=== PATIENT | female | born 1950 | race Caucasian/White ===

== ENCOUNTER 2020-03-24 08:43 | Outpatient (CLI) | payer BC | END 2020-03-24 23:59 | disposition home or self-care (01) | LOC: RAD 08:43 | PROVIDERS: ATTEND Internal Medicine Hematology & Oncology | DX: Z45.2 Encounter for adjustment and management of vascular access device (principal); C50.919 Malignant neoplasm of unspecified site of unspecified female breast | CPT/HCPCS: 36573; C1751 ==